=== PATIENT | male | born 1995 | race Caucasian/White ===

== ENCOUNTER 2017-06-15 02:22 | Emergency (ER) | payer BC ==
[~2017-06-15] VITALS: Ht 175.3 cm; Wt 83.4 kg
[2017-06-15 02:27] VITALS: TEMP 36.9; Ht 175.3 cm; Wt 83.4 kg
[2017-06-15] MEDS ORDERED: ACETAMINOPHEN 500 MG TAB PO STA (02:43)
[2017-06-15] MEDS ORDERED: IBUPROFEN 600 MG TAB PO STA (02:43)
[2017-06-15 04:53] VITALS: BP 139/86; PULSE 88; O2SAT 99
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
== END 2017-06-15 04:54 | disposition home or self-care (01) ==
LOC: C.EDB 02:24 → C.EDA 04:54
DX: S09.8XXA Other specified injuries of head, initial encounter (principal); S02.5XXA Fracture of tooth (traumatic), initial encounter for closed fracture; Y04.2XXA Assault by strike against or bumped into by another person, initial encounter